=== PATIENT | female | born 1995 | race Caucasian/White ===

== ENCOUNTER 2017-06-27 15:24 | Emergency (ER) | payer OTHER ==
[~2017-06-27] VITALS: Ht 160 cm; Wt 81.6 kg
[2017-06-27 15:24] VITALS: BP 111/67
[~2017-06-27 15:24] MED LIST: DONNATAL1 TAB PO; MIRALAX POWDER255 GM PO; PEPCID20 MG PO; SEPTRA 400 MG-81 TAB PO; ZANTAC150 MG PO
== END 2017-06-27 19:10 | disposition home or self-care (01) ==
LOC: ED 15:24
DX: S13.4XXA Sprain of ligaments of cervical spine, initial encounter (principal); Z79.899 Other long term (current) drug therapy; V49.59XA Passenger injured in collision with other motor vehicles in traffic accident, initial encounter; Y93.89 Activity, other specified; Y92.89 Other specified places as the place of occurrence of the external cause; Y99.9 Unspecified external cause status

== ENCOUNTER 2017-09-13 22:23 | Emergency (ER) | payer OTHER ==
[~2017-09-13] VITALS: Ht 172.7 cm; Wt 63.5 kg
[2017-09-13 22:32] VITALS: BP 128/80
[2017-09-13] MEDS ORDERED: IBU800 MG PO (23:01)
[2017-09-13] MEDS ORDERED: Zofran4 MG SL (23:01)
[2017-09-13] MEDS ORDERED: TYLENOL325 M1 PO (23:01)
== END 2017-09-13 23:40 | disposition home or self-care (01) ==
LOC: ED 22:23
DX: R51 Headache (principal); F17.200 Nicotine dependence, unspecified, uncomplicated; Z79.899 Other long term (current) drug therapy

== ENCOUNTER 2017-09-19 00:38 | Emergency (ER) | payer OTHER ==
[~2017-09-19] VITALS: Ht 160 cm; Wt 90.7 kg
[~2017-09-19 00:38] MED LIST changes: +IBU800 MG PO; +TYLENOL325 M1 PO; +Zofran4 MG SL
[2017-09-19 00:45] VITALS: BP 140/85
[2017-09-19] MEDS ORDERED: BENADRYL ALLERG25 M5 PO (01:38)
[2017-09-19] MEDS ORDERED: MEDROL DOSEPAK4 MG PO (01:38)
== END 2017-09-19 02:05 | disposition home or self-care (01) ==
LOC: ED 00:38
DX: T78.40XA Allergy, unspecified, initial encounter (principal); F17.200 Nicotine dependence, unspecified, uncomplicated; X58.XXXA Exposure to other specified factors, initial encounter

== ENCOUNTER 2017-10-02 13:42 | Emergency (ER) | payer OTHER ==
[~2017-10-02] VITALS: Ht 157.4 cm; Wt 81.6 kg
[~2017-10-02 13:42] MED LIST changes: +BENADRYL ALLERG25 M5 PO; +MEDROL DOSEPAK4 MG PO
[2017-10-02 14:10] VITALS: BP 120/74
[2017-10-02] MEDS ORDERED: KENALOG 0.1%80 GM T (14:43)
[2017-10-02] MEDS ORDERED: MEDROL DOSEPAK4 MG PO (14:43)
== END 2017-10-02 14:48 | disposition home or self-care (01) ==
LOC: ED 13:42
DX: L25.9 Unspecified contact dermatitis, unspecified cause (principal); F17.200 Nicotine dependence, unspecified, uncomplicated; Z79.899 Other long term (current) drug therapy

== ENCOUNTER 2018-08-01 16:39 | Emergency (ER) | payer OTHER ==
[~2018-08-01] VITALS: Ht 160 cm; Wt 90.7 kg
[~2018-08-01 16:39] MED LIST changes: +KENALOG 0.1%80 GM T
[2018-08-01 16:45] VITALS: BP 121/65
[2018-08-01 17:56] LABS: BILIRUBIN NEGATIVE (NEGATIVE); BLOOD NEGATIVE (NEGATIVE); CLARITY SL CLOUDY (CLEAR); COLOR YELLOW (YELLOW); GLUCOSE NEGATIVE (NEGATIVE); KETONE NEGATIVE (NEGATIVE); LEUKO ESTERASE NEGATIVE (NEGATIVE); NITRITE NEGATIVE (NEGATIVE)
[2018-08-01 18:06] LABS: BASO # 0.1 10*3/uL (0.0-0.1); BASO % 0.7 % (0.0-1.0); EOS # 0.3 10*3/uL (0.0-0.4); EOS % 2.1 % (1.0-4.0); HEMATOCRIT 42.1 % (37.0-47.0); HEMOGLOBIN 14.2 g/dl (12.0-16.0); LYMPH # 2.7 10*3/uL (1.3-4.4); LYMPH % 22.1 % (27.0-41.0); MEAN CELL VOLUME 85.2 fl (81.0-99.0); MEAN CORPUSCULAR HGB 28.7 pg (27.0-31.0); MEAN CORPUSCULAR HGB CONC 33.7 g/dl (33.0-37.0); MEAN PLATELET VOLUME 10.4 fl (9.6-12.3); MONO # 0.8 10*3/uL (0.1-1.0); MONO % 6.4 % (3.0-9.0); NEUT # 8.3 10*3/uL (2.3-7.9); NEUT % 68.5 % (47.0-73.0); PLATELET COUNT AUTOMATED 293 10*3/uL (130-400); RED BLOOD COUNT 4.94 10*6/uL (4.10-5.10); RED CELL DISTRI WIDTH 12.7 % (0-14.5); WHITE BLOOD COUNT 12.2 10*3/uL (4.8-10.8)
[2018-08-01 18:07] LABS: BACTERIA 2+
[2018-08-01 18:08] LABS: EPITHELIAL CELLS 31-40; RBC 0-2 rbc/hpf (0-2)
[2018-08-01 18:21] LABS: ALBUMIN 4.2 gm/dl (3.1-4.5); ALKALINE PHOSPHATASE 69 U/L (45-117); BUN 10 mg/dl (7-24); CHLORIDE 107 mmol/L (98-107); CREATININE 0.68 mg/dL (0.55-1.02); LIPASE 91 U/L (73-393); POTASSIUM 4.1 mmol/L (3.5-5.1); SGOT/AST 33 IU/L (3-35); SGPT/ALT 62 U/L (12-78); SODIUM 140 mmol/L (136-145); TOTAL PROTEIN 8.4 gm/dL (6.4-8.2)
[2018-08-01] MEDS ORDERED: SEPTDS PO (18:48)
[2018-08-01] MEDS ORDERED: PYRIDIUM200 M1 PO (18:48)
== END 2018-08-01 19:15 | disposition home or self-care (01) ==
LOC: ED 16:39
PROVIDERS: Physician Assistant
DX: R30.0 Dysuria (principal); M54.5 Low back pain; R10.9 Unspecified abdominal pain; R11.0 Nausea; R30.9 Painful micturition, unspecified; R39.15 Urgency of urination; R35.0 Frequency of micturition

== ENCOUNTER 2018-10-18 17:50 | Emergency (ER) | payer OTHER ==
[~2018-10-18] VITALS: Ht 160 cm; Wt 90.7 kg
[~2018-10-18 17:50] MED LIST changes: +PYRIDIUM200 M1 PO; +SEPTDS PO
[2018-10-18 17:52] VITALS: BP 131/80
[2018-10-18 18:13] LABS: BASO # 0.1 10*3/uL (0.0-0.1); EOS # 0.1 10*3/uL (0.0-0.4); EOS % 1.2 % (1.0-4.0); HEMATOCRIT 38.6 % (37.0-47.0); HEMOGLOBIN 13.1 g/dl (12.0-16.0); LYMPH # 1.5 10*3/uL (1.3-4.4); LYMPH % 17.8 % (27.0-41.0); MEAN CELL VOLUME 84.8 fl (81.0-99.0); MEAN CORPUSCULAR HGB 28.8 pg (27.0-31.0); MEAN CORPUSCULAR HGB CONC 33.9 g/dl (33.0-37.0); MEAN PLATELET VOLUME 10.4 fl (9.6-12.3); MONO # 0.4 10*3/uL (0.1-1.0); MONO % 4.8 % (3.0-9.0); NEUT # 6.2 10*3/uL (2.3-7.9); NEUT % 74.7 % (47.0-73.0); PLATELET COUNT AUTOMATED 258 10*3/uL (130-400); RED BLOOD COUNT 4.55 10*6/uL (4.10-5.10); RED CELL DISTRI WIDTH 12.5 % (0-14.5); WHITE BLOOD COUNT 8.4 10*3/uL (4.8-10.8)
[2018-10-18 18:27] LABS: BILIRUBIN NEGATIVE (NEGATIVE); BLOOD NEGATIVE (NEGATIVE); CLARITY CLEAR (CLEAR); COLOR YELLOW (YELLOW); GLUCOSE NEGATIVE (NEGATIVE); KETONE NEGATIVE (NEGATIVE); LEUKO ESTERASE TRACE (NEGATIVE); NITRITE NEGATIVE (NEGATIVE); PH 5.5 (5.0-9.0); SPECIFIC GRAVITY >= 1.030 (1.005-1.030); UROBILINOGEN 0.2 E.U./dl (0.2-1.0)
[2018-10-18 18:27] LABS: ALKALINE PHOSPHATASE 68 U/L (45-117); BUN 12 mg/dl (7-24); CHLORIDE 113 mmol/L (98-107); POTASSIUM 3.6 mmol/L (3.5-5.1); SGOT/AST 20 IU/L (3-35); SGPT/ALT 38 U/L (12-78); SODIUM 143 mmol/L (136-145); TOTAL PROTEIN 8.1 gm/dL (6.4-8.2)
[2018-10-18 18:30] LABS: BETA-HCG, QUANT < 1.0 mIU/mL (1-3)
[2018-10-18 18:39] LABS: BACTERIA 3+; RBC 0-2 rbc/hpf (0-2)
[2018-10-21 05:03] LABS: GONOCOCCUS BY NAA Negative (Negative)
== END 2018-10-18 18:48 | disposition home or self-care (01) ==
LOC: ED 17:50
PROVIDERS: Nurse Practitioner Family
DX: R10.30 Lower abdominal pain, unspecified (principal); R10.2 Pelvic and perineal pain; Z32.02 Encounter for pregnancy test, result negative; R03.0 Elevated blood-pressure reading, without diagnosis of hypertension; Z79.899 Other long term (current) drug therapy

== ENCOUNTER 2019-09-08 14:05 | Emergency (ER) | payer SELFPAY ==
[~2019-09-08] VITALS: Ht 160 cm; Wt 90.7 kg
[2019-09-08 14:08] VITALS: BP 150/70
[2019-09-08] MEDS ORDERED: TESSALON PERLE100 MG PO (14:28)
[2019-09-08] MEDS ORDERED: AUGMENTIN 875-875 MG PO (14:28)
[2019-09-08] MEDS ORDERED: TAMIFLU 75MG CA75 MG PO (14:52)
== END 2019-09-08 14:40 | disposition home or self-care (01) ==
LOC: ED 14:05
DX: J01.90 Acute sinusitis, unspecified (principal); F17.200 Nicotine dependence, unspecified, uncomplicated

== ENCOUNTER 2020-03-10 15:12 | Emergency (ER) | payer BC ==
[~2020-03-10] VITALS: Ht 157.4 cm; Wt 90.7 kg
[~2020-03-10 15:12] MED LIST changes: +AUGMENTIN 875-875 MG PO; +TAMIFLU 75MG CA75 MG PO; +TESSALON PERLE100 MG PO
[2020-03-10 15:31] VITALS: BP 128/97
[2020-03-10] MEDS ORDERED: CLEOCIN HCL150 MG PO (16:24)
[2020-03-10] MEDS ORDERED: IBU800 MG PO (16:24)
== END 2020-03-10 16:45 | disposition home or self-care (01) ==
LOC: ED 15:12
DX: K04.7 Periapical abscess without sinus (principal); K08.89 Other specified disorders of teeth and supporting structures; F17.200 Nicotine dependence, unspecified, uncomplicated; Z79.899 Other long term (current) drug therapy